=== PATIENT | female | born 2000 | race African-American/Black ===

== ENCOUNTER 2021-06-06 17:54 | Emergency (ER) | payer OTHER, SELFPAY ==
--- NOTE | ~2021-06-06 | XR_ITS ---
EXAMINATION: XR CHEST CLINICAL INFORMATION: Chest pain COMPARISON: None TECHNIQUE: 2 views of the chest were obtained. FINDINGS: No acute airspace disease. 5 mm calcified granuloma the left lower lobe. Heart size is normal. Cardiac and mediastinal contours are normal. There is no pulmonary vascular congestion. There is no pleural effusion, there is no pneumothorax. XR/XR chest 2V IMPRESSION: No acute abnormality of chest.
[2021-06-06 18:08] VITALS: BP 120/69; PULSE 125; RESP 18; TEMP 36.6; O2SAT 98; BMI 16.2
--- NOTE | 2021-06-06 18:12 | ECG_ITS ---
Test Reason : palpitations Blood Pressure : / mmHG Vent. Rate : 123 BPM Atrial Rate : 123 BPM P-R Int : 166 ms QRS Dur : 074 ms QT Int : 316 ms P-R-T Axes : 076 079 028 degrees QTc Int : 452 ms Sinus tachycardia Nonspecific T wave abnormality Borderline ECG No previous ECGs available Referred By: Generic ED Physician Electronically Signed By:ELLEN ANDERSEN
[2021-06-06 18:25] LABS: MANUAL DIFF FLAG NO
[2021-06-06 18:26] LABS: Basophils Percent Auto 0.2 % (0-2); Eosinophils Absolute Auto 0.1 X10*3/uL (0.0-0.4); Eosinophils Percent Auto 1.9 % (0-4); Hematocrit 35.2 % (37.0-47.0); Hemoglobin 11.4 g/dl (12.0-16.0); Imm Gran Abs Auto 0.01 X10*3/uL (0.00-0.03); Imm Gran Pct Auto 0.2 % (0.0-0.4); Lymphocytes Absolute Auto 1.6 X10*3/uL (1.2-4.9); Lymphocytes Percent Auto 33.6 % (20-40); Mean Corpuscular HGB Conc 32.4 g/dl (31.0-35.0); Mean Corpuscular Hemoglobin 27.1 pg (27.0-33.0); Mean Corpuscular Volume 83.8 fL (80.0-98.0); Mean Platelet Volume 12.3 fL (9.4-12.3); Monocytes Absolute Auto 0.8 X10*3/uL (0.1-1.2); Monocytes Percent Auto 17.4 % (2-11); Neutrophils Absolute Auto 2.3 x10*3/uL (2.0-8.3); Neutrophils Percent Auto 46.7 % (45-73); Platelet Count 171 X10*3/uL (160-400); Red Cell Distribution Width 11.8 % (11.0-16.0); White Blood Count 4.8 X10*3/uL (4.8-10.8)
[2021-06-06 18:48] LABS: Alanine Aminotransferase 85 U/L (0-31); Albumin Level 3.5 g/dL (3.5-5.0); Alkaline Phosphatase 106 U/L (39-117); Anion Gap 9 (12-20); Aspartate Amino Transferase 45 U/L (5-31); Bilirubin Total 0.5 mg/dL (0.0-1.0); Blood Urea Nitrogen 18 mg/dL (9-16); Calcium 9.1 mg/dL (8.4-10.2); Carbon Dioxide 30 mmol/L (22-29); Chloride 105 mmol/L (96-108); Creatinine Clr Calc Pharmacy 109.6; Estimated Glomerular Filt Rate > 60; Glucose Random 102 mg/dL (60-115); Potassium 4.1 mmol/L (3.3-5.1); Sodium 140 mmol/L (135-145)
[2021-06-06 18:50] LABS: Troponin-I High Sensitivity < 3.5 ng/L (<3.5-17.0)
[2021-06-06 19:07] LABS: Thyroid Stimulating Hormone < 0.01 uIU/mL (0.32-4.0)
[2021-06-06 20:38] VITALS: BP 108/59; PULSE 130; RESP 16; TEMP 36.6; O2SAT 98
[2021-06-06 21:37] LABS: Free T4 (Free Thyroxine) 3.98 ng/dL (0.71-1.85)
--- NOTE | 2021-06-06 21:53 | ED_ITS ---
HPI - General Adult General Chief complaint: General Medical Stated complaint: check throat/thyroid and Heart Time Seen by Provider: 06/06/21 21:02 Source: patient and EMS Mode of arrival: EMS Limitations: no limitations History of Present Illness HPI narrative: Patient comes emergency room complaining of palpitations, noticing that her thyroid has enlarged. Patient states that she has been previously diagnosed with Graves disease. Patient used to take methimazole 5 mg t.i.d.. However, patient moved from [place] 1 year ago, she has not had any of her medications for over a year. Patient states that over last few days she has noticed that she has tachycardia. Patient denies chest pain, no shortness of breath. Related Data Home Medications Medication Instructions Recorded Confirmed methimazole 10 mg tablet 10 mg DAILY 06/06/21 06/06/21 methimazole 5 mg tablet 5 mg PO BID 06/06/21 06/06/21 Previous Rx's Medication Instructions Recorded methimazole 10 mg tablet 10 mg PO TID 30 Days #90 tab 06/06/21 propranolol 60 mg tablet 60 mg PO TID 30 Days #90 tab 06/06/21 Allergies Allergy/AdvReac Type Severity Reaction Status Date / Time No Known Allergies Allergy Verified 06/06/21 18:08 Review of Systems Verdana 4l Review of Systems: Verdana 4d Verdana 4d Constitutional : No Weight loss, No Fever, No Chills, No Night Sweats, No Fatigue, No Malaise ENT/Mouth : No Hearing loss, No Ear Pain, No Nasal Congestion, No Sinus Pain, No Hoarseness, No sore throat, No Rhinorrhea, No Swallowing DifficultyDifficulty Eyes: No Eye Pain, No Swelling, No Redness, No Foreign Body, No Discharge, No Vision Changes Cardiovascular : No Chest Pain, No SOB, No Dyspnea on Exertion, No Orthopnea, No Edema, complaining of Palpitations Respiratory : No Cough, No Sputum, No Wheezing, No Smoke Exposure, No Dyspnea Gastrointestinal : No Nausea, No Vomiting, No Diarrhea, No Constipation, No abdominal Pain, No Hematochezia, No Melena Genitourinary : no irregular bleeding, No Dysuria, No Urinary Frequency, No Hematuria, No Urinary Incontinence, No Urgency, No Flank Pain, No Urinary Flow Changes, No Hesitancy Musculoskeletal : No joint pain, No Myalgias, No Joint Swelling Skin : No Skin Lesions, No rash Neuro : No Weakness, No Numbness, No Paresthesias, No Loss of Consciousness, No Dizziness, No Headache Psych : No Anxiety/Panic, No Depression, No SI/HI/AH/VH, No Social Issues, Heme/Lymph: No Bruising, No Bleeding,No Lymphadenopathy Endocrine : Tachycardia, complaining of enlarged thyroid PMFSH Past Medical History Medical History (Updated 06/06/21 @ 22:16 by Melvina Polanco MD) Graves disease Social History Social History Advance Directives: No Advance Directives Information Provided: No Physical Exam Verdana 4l Vital Signs: Verdana 4d Verdana 4d Vital Signs: Verdana 4d Verdana 4Bd Last Vital Signs Verdana 4d Acid Correction Hand New 4d Acid Correction Hand New 4d Temp 97.8 F 06/06/21 20:38 Acid Correction Hand New 4d Pulse 114 H 06/06/21 22:53 Acid Correction Hand New 4d Resp 16 06/06/21 20:38 BP 108/59 L 06/06/21 20:38 Pulse Ox 98 06/06/21 20:38 BMI result Body Mass Index 16.2 Const: Other: Appearance: Alert. Oriented X3. No acute distress. Under weight Eyes: Pupils equal, round and reactive to light. ENT: Pharynx normal. Neck: Her thyroid is enlarged, tender to palpation diffusely, no individual nodules palpated CVS: Tachycardic, heart rate 130 Pulses normal. Normal S1 and S2 Respiratory: No respiratory distress. Breath sounds normal. No Wheezing. No rales Abdomen: Soft and nontender. No rigidity. No distention. good BS x4 Skin: Skin warm and dry. Normal skin color. Normal skin turgor. Extremities: No lower extremity edema. No Lacerations. No Rash Neuro: Oriented X 3. No motor deficit. No sensory deficit. Moving all extermities. No slurred speech. Course Course Course Narrative: Patient was given IV fluids, 20 mg of methimazole, and propanolol. Patient instructed to follow-up with her new PCP, and was given the information to fol low up with Endocrinology On discharge, heart rate 115, patient states that she is not planning any palpitations. Patient was sent home with a prescription for methimazole upon all that would last for 2 months, at least until she can see her primary care physician in case she cannot be seen by Endocrinology in the next couple of weeks Medical Decision Making Lab Data Result diagrams: 06/06/21 18:20 06/06/21 18:20 Labs: Lab Results 06/06/21 06/06/21 06/06/21 Range/Units 18:20 18:20 18:20 WBC 4.8 (4.8-10.8) X10*3/uL RBC 4.20 (4.20-5.50) X10*6/uL Hgb 11.4 L (12.0-16.0) g/dl Hct 35.2 L (37.0-47.0) % MCV 83.8 (80.0-98.0) fL MCH 27.1 (27.0-33.0) pg MCHC 32.4 (31.0-35.0) g/dl RDW 11.8 (11.0-16.0) % Plt Count 171 (160-400) X10*3/uL MPV 12.3 (9.4-12.3) fL Immature Gran % (Auto) 0.2 (0.0-0.4) % Neut % (Auto) 46.7 (45-73) % Lymph % (Auto) 33.6 (20-40) % [place] % (Auto) 17.4 H (2-11) % Eos % (Auto) 1.9 (0-4) % Baso % (Auto) 0.2 (0-2) % Lymph # (Auto) 1.6 (1.2-4.9) X10*3/uL [place] # (Auto) 0.8 (0.1-1.2) X10*3/uL Eos # (Auto) 0.1 (0.0-0.4) X10*3/uL Baso # (Auto) 0.0 (0.0-0.2) X10*3/uL Abs Immat Gran (auto) 0.01 (0.00-0.03) X10*3/uL Absolute Neuts (auto) 2.3 (2.0-8.3) x10*3/uL Absolute Nucleated RBC 0.000 (0.0-0.012) X10*3/uL Nucleated RBC % (auto) 0.0 (0.0-0.2) /100WBC Sodium 140 (135-145) mmol/L Potassium 4.1 (3.3-5.1) mmol/L Chloride 105 (96-108) mmol/L Carbon Dioxide 30 H (22-29) mmol/L Anion Gap 9 L (12-20) BUN 18 H (9-16) mg/dL Creatinine 0.56 (0.5-1.4) mg/dL Estim Creat Clear Calc 109.6 Estimated GFR > 60 Random Glucose 102 (60-115) mg/dL Calcium 9.1 (8.4-10.2) mg/dL Total Bilirubin 0.5 (0.0-1.0) mg/dL AST 45 H (5-31) U/L ALT 85 H (0-31) U/L Alkaline Phosphatase 106 (39-117) U/L Troponin I High Sens < 3.5 (<3.5-17.0) ng/L Total Protein 6.0 L (6.5-8.0) g/dL Albumin 3.5 (3.5-5.0) g/dL TSH < 0.01 L (0.32-4.0) uIU/mL Free T4 3.98 H (0.71-1.85) ng/dL Discharge Plan Discharge Clinical Impression: Graves disease Patient Disposition: Home, Self-Care Instructions: Graves Disease (ED) Additional Instructions: Please follow-up with your primary care physician tomorrow. If you have any worsening or new symptoms, please return to the emergency room or call 911 Prescriptions: New methimazole 10 mg tablet 10 mg PO TID 30 Days Qty: 90 1RF propranolol 60 mg tablet 60 mg PO TID 30 Days Qty: 90 1RF No Action methimazole [Tapazole] 5 mg Tablet 5 mg PO BID 0RF methimazole [Tapazole] 10 mg Tablet 10 mg DAILY 0RF Referrals: Iwona Lu DO [Physician] - 2 days
[2021-06-06] MEDS: Propranolol HCL 20 MG TABLET 60 MG PO (22:08)
[2021-06-06] MEDS: methIMAzole 10 MG TABLET 20 MG PO (22:09)
[2021-06-06] MEDS: 0.9 % Sodium Chloride 1,000 ML 999 ML IVCONT (22:14)
[2021-06-06 22:53] VITALS: PULSE 114
[2021-06-07] VITALS: BP 116/66; PULSE 114; RESP 21; TEMP 36.7; O2SAT 97
== END 2021-06-07 00:40 | disposition home or self-care (01) ==
PROVIDERS: Emergency Provider Emergency Medicine
DX: E05.00 Thyrotoxicosis with diffuse goiter without thyrotoxic crisis or storm (principal)
CPT/HCPCS: 36415; 71046; 80053; 84439; 84443; 84484; 85025; 93005; 96360; 99283; 99284

== ENCOUNTER 2021-06-20 15:56 | Emergency (ER) | payer OTHER, SELFPAY ==
--- NOTE | ~2021-06-20 | XR_ITS ---
EXAMINATION: XR CHEST CLINICAL INFORMATION: Palpitations. COMPARISON: Chest radiograph dated from 06/06/2021. TECHNIQUE: PA view of the chest was obtained. FINDINGS: Normal appearance of the cardiomediastinal silhouette. No focal airspace opacities, pleural effusions or pneumothorax. A 0.6 cm granuloma in the left lower lobe is unchanged. No acute osseous abnormalities. The visualized upper abdomen is within normal limits. XR/XR chest 1V IMPRESSION: No acute cardiopulmonary findings.
[2021-06-20 16:01] VITALS: BP 122/79; PULSE 100
--- NOTE | 2021-06-20 16:03 | ECG_ITS ---
Test Reason : PALPITATIONS Blood Pressure : / mmHG Vent. Rate : 096 BPM Atrial Rate : 096 BPM P-R Int : 136 ms QRS Dur : 076 ms QT Int : 362 ms P-R-T Axes : 057 074 019 degrees QTc Int : 457 ms Normal sinus rhythm Normal ECG When compared with ECG of 06-JUN-2021 18:10, No significant change was found Referred By: Generic ED Physician Electronically Signed By:MAXIMILIAN ANDRADE MD
[2021-06-20 16:22] LABS: MANUAL DIFF FLAG NO
[2021-06-20 16:24] LABS: Basophils Percent Auto 0.2 % (0-2); Eosinophils Absolute Auto 0.1 X10*3/uL (0.0-0.4); Eosinophils Percent Auto 1.4 % (0-4); Hematocrit 38.7 % (37.0-47.0); Hemoglobin 12.4 g/dl (12.0-16.0); Imm Gran Abs Auto 0.02 X10*3/uL (0.00-0.03); Imm Gran Pct Auto 0.3 % (0.0-0.4); Lymphocytes Absolute Auto 1.7 X10*3/uL (1.2-4.9); Lymphocytes Percent Auto 30.4 % (20-40); Mean Corpuscular Hemoglobin 26.3 pg (27.0-33.0); Mean Corpuscular Volume 82.2 fL (80.0-98.0); Mean Platelet Volume 12.2 fL (9.4-12.3); Monocytes Absolute Auto 0.6 X10*3/uL (0.1-1.2); Monocytes Percent Auto 9.9 % (2-11); Neutrophils Absolute Auto 3.3 x10*3/uL (2.0-8.3); Neutrophils Percent Auto 57.8 % (45-73); Platelet Count 248 X10*3/uL (160-400); Red Blood Count 4.71 X10*6/uL (4.20-5.50); Red Cell Distribution Width 12.4 % (11.0-16.0); White Blood Count 5.7 X10*3/uL (4.8-10.8)
[2021-06-20 16:36] VITALS: BP 111/62; PULSE 94; RESP 18; TEMP 37.1; O2SAT 99; BMI 15.7
[2021-06-20 16:41] LABS: Alanine Aminotransferase 49 U/L (0-31); Albumin Level 3.7 g/dL (3.5-5.0); Alkaline Phosphatase 110 U/L (39-117); Anion Gap 10 (12-20); Aspartate Amino Transferase 37 U/L (5-31); Bilirubin Total 0.5 mg/dL (0.0-1.0); Blood Urea Nitrogen 18 mg/dL (9-16); Calcium 9.8 mg/dL (8.4-10.2); Carbon Dioxide 28 mmol/L (22-29); Chloride 104 mmol/L (96-108); Creatinine Clr Calc Pharmacy 100.6; Estimated Glomerular Filt Rate > 60; Glucose Random 111 mg/dL (60-115); Potassium 5.1 mmol/L (3.3-5.1); Sodium 137 mmol/L (135-145); Total Protein 6.5 g/dL (6.5-8.0)
[2021-06-20 16:47] LABS: Troponin-I High Sensitivity < 3.5 ng/L (<3.5-17.0)
[2021-06-20 17:15] LABS: UPreg QC Valid YES; Urine Pregnancy NEGATIVE (NEGATIVE)
[2021-06-20 18:00] VITALS: BP 114/63; RESP 99; TEMP 37.1; O2SAT 99
--- NOTE | 2021-06-20 19:28 | ED_ITS ---
HPI - Arrhythmia/Palpitations General Chief Complaint: Arrhythmia/Palpitations Stated Complaint: chest pain since am Time Seen by Provider: 06/20/21 19:28 Source: patient Mode of arrival: ambulatory Limitations: no limitations History of Present Illness HPI narrative: Patient's history of Graves disease came here for palpitation was seen here on 06/06 for same and started on methimazole 10 mg t.i.d. and Propanol 60 mg t.i.d. patient taking these medications but still feeling palpitations specially today arrival heart rate was 94 beats per minute Related Data Home Medications Medication Instructions Recorded Confirmed methimazole 10 mg tablet 10 mg DAILY 06/06/21 06/06/21 methimazole 5 mg tablet 5 mg PO BID 06/06/21 06/06/21 Previous Rx's Medication Instructions Recorded methimazole 10 mg tablet 10 mg PO TID 30 Days #90 tab 06/06/21 propranolol 60 mg tablet 60 mg PO TID 30 Days #90 tab 06/06/21 Allergies Allergy/AdvReac Type Severity Reaction Status Date / Time No Known Allergies Allergy Verified 06/20/21 16:36 Review of Systems Review of Systems: Yes all other systems are reviewed and are negative [facility] Past Medical History Medical History Graves disease Social History Social History Alcohol intake: never Patient Tobacco Use Status: Never used Tobacco Use of substances other than those prescribed or required for medical reasons: No Advance Directives: No Physical Exam Vital Signs: Vital Signs: Last Vital Signs Temp 98.4 F 06/20/21 20:22 Pulse 104 H 06/20/21 20:22 Resp 18 06/20/21 20:22 BP 111/58 L 06/20/21 20:22 Pulse Ox 100 06/20/21 20:22 BMI result Body Mass Index 15.7 Appearance: Alert. Oriented X3. No acute distress. Thin emaciated Eyes: PERRLA, No Nystagmus ENT: Pharynx normal. Oral Mucosa moist Neck: Normal inspection. Neck supple. CVS: Sinus tachycardia with heart rate 110 Pulses normal. Respiratory: No respiratory distress. Equal air entry bilateral, no wheezing/rales/rhonchi Abdomen: Soft and nontender. Bowel sounds are present, no mass palpable, no CVA tenderness Skin: Skin warm and dry. Normal skin color. Normal skin turgor. Extremities: No lower extremity edema. No calf tenderness Neuro: Oriented X 3. No motor deficit. No sensory deficit.No cerebellar signs , cranial nerves II-XII intact MDM - Arrhythmia/Palpitations MDM Narrative Medical decision making narrative: Patient hyperthyroidism secondary to Graves disease heart rate in 110 range order already on propranolol 60 mg 3 times a day and methimazole 10 mg 3 times a day which was started on 06/06/21 patient plan to see her PCP and advertising specialist after. Will discharge patient home advised to continue same medications Lab Data Attestation: I reviewed the patient's lab results. Result diagrams: 06/20/21 16:17 06/20/21 16:17 Labs: Lab Results 06/20/21 06/20/21 06/20/21 Range/Units 16:17 16:17 16:17 WBC 5.7 (4.8-10.8) X10*3/uL RBC 4.71 (4.20-5.50) X10*6/uL Hgb 12.4 (12.0-16.0) g/dl Hct 38.7 (37.0-47.0) % MCV 82.2 (80.0-98.0) fL MCH 26.3 L (27.0-33.0) pg MCHC 32.0 (31.0-35.0) g/dl RDW 12.4 (11.0-16.0) % Plt Count 248 D (160-400) X10*3/uL MPV 12.2 (9.4-12.3) fL Immature Gran % (Auto) 0.3 (0.0-0.4) % Neut % (Auto) 57.8 (45-73) % Lymph % (Auto) 30.4 (20-40) % [place] % (Auto) 9.9 (2-11) % Eos % (Auto) 1.4 (0-4) % Baso % (Auto) 0.2 (0-2) % Lymph # (Auto) 1.7 (1.2-4.9) X10*3/uL [place] # (Auto) 0.6 (0.1-1.2) X10*3/uL Eos # (Auto) 0.1 (0.0-0.4) X10*3/uL Baso # (Auto) 0.0 (0.0-0.2) X10*3/uL Abs Immat Gran (auto) 0.02 (0.00-0.03) X10*3/uL Absolute Neuts (auto) 3.3 (2.0-8.3) x10*3/uL Absolute Nucleated RBC 0.000 (0.0-0.012) X10*3/uL Nucleated RBC % (auto) 0.0 (0.0-0.2) /100WBC Sodium 137 (135-145) mmol/L Potassium 5.1 D (3.3-5.1) mmol/L Chloride 104 (96-108) mmol/L Carbon Dioxide 28 (22-29) mmol/L Anion Gap 10 L (12-20) BUN 18 H (9-16) mg/dL Creatinine 0.61 (0.5-1.4) mg/dL Estim Creat Clear Calc 100.6 Estimated GFR > 60 Random Glucose 111 (60-115) mg/dL Calcium 9.8 D (8.4-10.2) mg/dL Total Bilirubin 0.5 (0.0-1.0) mg/dL AST 37 H (5-31) U/L ALT 49 H (0-31) U/L Alkaline Phosphatase 110 (39-117) U/L Troponin I High Sens < 3.5 (<3.5-17.0) ng/L Total Protein 6.5 (6.5-8.0) g/dL Albumin 3.7 (3.5-5.0) g/dL TSH < 0.01 L (0.32-4.0) uIU/mL Free T4 3.14 H (0.71-1.85) ng/dL Urine Test (NEGATIVE) 06/20/21 Range/Units 16:53 WBC (4.8-10.8) X10*3/uL RBC (4.20-5.50) X10*6/uL Hgb (12.0-16.0) g/dl Hct (37.0-47.0) % MCV (80.0-98.0) fL MCH (27.0-33.0) pg MCHC (31.0-35.0) g/dl RDW (11.0-16.0) % Plt Count (160-400) X10*3/uL MPV (9.4-12.3) fL Immature Gran % (Auto) (0.0-0.4) % Neut % (Auto) (45-73) % Lymph % (Auto) (20-40) % [place] % (Auto) (2-11) % Eos % (Auto) (0-4) % Baso % (Auto) (0-2) % Lymph # (Auto) (1.2-4.9) X10*3/uL [place] # (Auto) (0.1-1.2) X10*3/uL Eos # (Auto) (0.0-0.4) X10*3/uL Baso # (Auto) (0.0-0.2) X10*3/uL Abs Immat Gran (auto) (0.00-0.03) X10*3/uL Absolute Neuts (auto) (2.0-8.3) x10*3/uL Absolute Nucleated RBC (0.0-0.012) X10*3/uL Nucleated RBC % (auto) (0.0-0.2) /100WBC Sodium (135-145) mmol/L Potassium (3.3-5.1) mmol/L Chloride (96-108) mmol/L Carbon Dioxide (22-29) mmol/L Anion Gap (12-20) BUN (9-16) mg/dL Creatinine (0.5-1.4) mg/dL Estim Creat Clear Calc Estimated GFR Random Glucose (60-115) mg/dL Calcium (8.4-10.2) mg/dL Total Bilirubin (0.0-1.0) mg/dL AST (5-31) U/L ALT (0-31) U/L Alkaline Phosphatase (39-117) U/L Troponin I High Sens (<3.5-17.0) ng/L Total Protein (6.5-8.0) g/dL Albumin (3.5-5.0) g/dL TSH (0.32-4.0) uIU/mL Free T4 (0.71-1.85) ng/dL Urine Test NEGATIVE (NEGATIVE) ECG Data Attestation: I personally reviewed and interpreted this ECG as follows: Interpretation: Normal sinus rhythm heart rate 96 beats minute of intervals normal axis no acute ST-T changes impression normal EKG Discharge Plan Discharge Clinical Impression: Graves disease Patient Disposition: Home, Self-Care Instructions: Hyperthyroidism (ED) Additional Instructions: Continue methimazole 10 mg 3 times a day and Propanol 60 mg 3 times a day and follow with advertising specialist as scheduled Prescriptions: No Action methimazole [Tapazole] 5 mg Tablet 5 mg PO BID 0RF methimazole [Tapazole] 10 mg Tablet 10 mg DAILY 0RF methimazole 10 mg tablet 10 mg PO TID 30 Days Qty: 90 1RF propranolol 60 mg tablet 60 mg PO TID 30 Days Qty: 90 1RF
[2021-06-20 19:37] VITALS: PULSE 102
[2021-06-20 20:03] LABS: Free T4 (Free Thyroxine) 3.14 ng/dL (0.71-1.85); Thyroid Stimulating Hormone < 0.01 uIU/mL (0.32-4.0)
[2021-06-20 20:22] VITALS: BP 111/58; PULSE 104; RESP 18; TEMP 36.9; O2SAT 100
[2021-06-20 22:00] VITALS: PULSE 110; RESP 15
[2021-06-20] MEDS: Propranolol HCL 20 MG TABLET 60 MG PO (22:45)
== END 2021-06-20 22:51 | disposition home or self-care (01) ==
PROVIDERS: Emergency Provider Internal Medicine
DX: E05.00 Thyrotoxicosis with diffuse goiter without thyrotoxic crisis or storm (principal)
CPT/HCPCS: 36415; 71045; 80053; 81025; 84439; 84443; 84484; 85025; 93005; 99284; 99285